=== PATIENT | female | born 2000 ===

== ENCOUNTER 2019-07-01 18:03 | Inpatient (IN) | payer MEDICAID ==
[2019-07-01] MEDS ORDERED: Sodium Chloride 0.9% 10 ML SDV IV PRN (19:09)
[2019-07-01] MEDS ORDERED: Methylergonovine 0.2 MG/1 ML Amp IM PRN ×2 (19:09→23:46)
[2019-07-01] MEDS ORDERED: Water For Irrigation,Sterile 1,000 ML Container IRR PRN (19:09)
[2019-07-01] MEDS ORDERED: Tranexamic Acid 1,000 MG in Sodium Chloride 0.9% 100 ML IV PRN ×2 (19:09→23:46)
[2019-07-01] MEDS ORDERED: Sodium Chloride 0.9% 2.5 ML Syringe FLUSH PRN (19:09)
[2019-07-01] MEDS ORDERED: Nalbuphine 10 MG/1 ML Vial IVPUSH PRN (19:09)
[2019-07-01] MEDS ORDERED: Terbutaline 1 MG/ML SDV SUBCUT PRN (19:09)
[2019-07-01] MEDS ORDERED: Sodium Chloride 0.9% 10 ML Syringe FLUSH PRN (19:09)
[2019-07-01] MEDS ORDERED: Misoprostol 200 MCG Tab PO PRN (19:09)
[2019-07-01] MEDS ORDERED: Butorphanol 1 MG/ML SDV IVPUSH PRN (19:09)
[2019-07-01] MEDS ORDERED: Lidocaine 1% 50 ML MDV INJECT PRN (19:09)
[2019-07-01] MEDS ORDERED: Carboprost Tromethamine 250 MCG/1 ML Amp IM PRN (19:09)
[2019-07-01] MEDS ORDERED: Lactated Ringers 1,000 ML IV SCH (19:15)
[2019-07-01] MEDS ORDERED: Oxytocin/0.9 % Sodium Chloride 30 UNIT/500 ML BAG IV SCH ×2 (19:15)
[2019-07-01] MEDS ORDERED: fentaNYL 100 MCG/2 ML SDV ONE (20:01)
[2019-07-01] MEDS ORDERED: Ropivacaine HCl/PF 100 ML ONE (20:01)
[2019-07-01] MEDS ORDERED: Ropivacaine 0.2% PF 2 MG/ML 20 ML SDV ONE (20:01)
--- NOTE | 2019-07-01 20:58 | HP ---
DATE OF : 2000 PRIMARY CARE PHYSICIAN: Unknown PCP ADMITTING DIAGNOSIS: Labor. HISTORY OF PRESENT ILLNESS: This is a 18-year-old female. She is G2, P1-0-0-1. She presents at 40-5/7 weeks' gestation in active spontaneous labor. She is group B strep negative. She has had good care with Dr. Meghan Sosa in [place] as well as the [facility] in [place]. She is known to be group B strep negative. She has had decreased frequency of OB visits in the last month due to COVID activity. She has had no known exposure. She denies fever, chills, cough, shortness of breath, or other symptoms. She presents with contractions that are becoming more and more painful. She chose to come to [place]. She did receive a referral from [facility] to be delivered in [place] as this is her preference as she feels that it is a lower risk facility for COVID. care is uncomplicated. She denies use of tobacco, alcohol, or street drugs. MEDICAL HISTORY: Negative. SURGICAL HISTORY: Negative. ALLERGIES: None known. MEDICATIONS: None. She states that she has not been taking her vitamins lately because she was hoping that she would get delivered. SOCIAL HISTORY: She is single. Sexually active. She denies use of tobacco, alcohol, or street drugs. Due to no prior visits here in [place], she does agree to a urine drug screen. FAMILY HISTORY: Negative for babies with congenital anomalies. PAST OBSTETRIC HISTORY: She has had 1 prior term spontaneous vaginal delivery. This was 3 years ago and without complications. This was with Dr. Travis in [place]. REVIEW OF SYSTEMS: Negative for headache, visual changes, shortness of breath, chest pain, dyspnea on exertion, palpitations, nausea, vomiting, diarrhea, skin rash, or other concerns. PHYSICAL EXAMINATION: VITAL SIGNS: Her blood pressure is 114/73, temperature 97.2, pulse is 93, respiratory rate of 20. heart tones are 130s, moderate variability, acceleration present, no decelerations. Contractions are every 4 minutes. GENERAL: She is alert and oriented. She is in no acute distress. NECK: Supple without lymphadenopathy or thyromegaly. LUNGS: Clear. CV: Regular without murmur. ABDOMEN: Soft, gravid, nontender. Estimated weight of 3600 g. There is no CVA tenderness. EXTREMITIES: Show trace edema. VAGINAL: 6 cm, 70% effaced, -2 station. ASSESSMENT AND PLAN: 40-5/7 weeks' intrauterine , active spontaneous labor, group B strep negative, category 1 heart tones. We will admit to Labor and Delivery. She may have epidural at request and proceed with labor management. TALIA WHALEN /[id number]
--- NOTE | 2019-07-01 21:03 | PCM.PREANE ---
Preanesthetic Assessment - Procedure Proposed Procedure: JUNIOR - Anesthesia/Transfusion/Family Hx Anesthesia History: Prior Anesthesia Without Reaction Family History of Anesthesia Reaction: No Transfusion History: No Prior Transfusion(s) Intubation History: Unknown - Review of Systems General: No Symptoms Pulmonary: No Symptoms Cardiovascular: No Symptoms Gastrointestinal: No Symptoms Neurological: No Symptoms Other: Reports: Anxiety (Extremely anxious. ) - Physical Assessment NPO Status Date: 07/01/19 NPO Status Time: 19:30 Vital Signs: 140/76 88 20 99% Height: 1.65 m Weight: 102.512 kg ASA Class: 2 Mental Status: Alert & Oriented x3 Airway Class: Mallampati = 2 Dentition: Reports: Normal Dentition Thyro-Mental Finger Breadths: 3 Mouth Opening Finger Breadths: 3 ROM/Head Extension: Full Lungs: Clear to Auscultation Cardiovascular: Regular Rate - Lab Values: Laboratory Last Values WBC 11.62 K/uL (4.0-11.0) H 07/01/19 19:35 RBC 3.70 M/uL (4.30-5.90) L 07/01/19 19:35 Hgb 11.2 g/dL (12.0-16.0) L 07/01/19 19:35 Hct 34.1 % (36.0-46.0) L 07/01/19 19:35 MCV 92.2 fL (80.0-98.0) 07/01/19 19:35 MCH 30.3 pg (27.0-32.0) 07/01/19 19:35 MCHC 32.8 g/dL (31.0-37.0) 07/01/19 19:35 RDW Std Deviation 44.2 fl (28.0-62.0) 07/01/19 19:35 RDW Coeff of Candice 13 % (11.0-15.0) 07/01/19 19:35 Plt Count 238 K/uL (150-400) 07/01/19 19:35 MPV 10.10 fL (7.40-12.00) 07/01/19 19:35 Nucleated RBC % 0.0 /100WBC 07/01/19 19:35 Nucleated RBCs # 0 K/uL 07/01/19 19:35 Urine Opiates Screen NEGATIVE (NEGATIVE) 07/01/19 19:30 Ur Oxycodone Screen NEGATIVE (NEGATIVE) 07/01/19 19:30 Urine Methadone Screen NEGATIVE (NEGATIVE) 07/01/19 19:30 Ur Barbiturates Screen NEGATIVE (NEGATIVE) 07/01/19 19:30 Ur Phencyclidine Scrn NEGATIVE (NEGATIVE) 07/01/19 19:30 Ur Amphetamine Screen NEGATIVE (NEGATIVE) 07/01/19 19:30 U Methamphetamines Scrn NEGATIVE (NEGATIVE) 07/01/19 19:30 U Benzodiazepines Scrn NEGATIVE (NEGATIVE) 07/01/19 19:30 U Cocaine Metab Screen NEGATIVE (NEGATIVE) 07/01/19 19:30 U Marijuana (THC) Screen NEGATIVE (NEGATIVE) 07/01/19 19:30 - Allergies Allergies/Adverse Reactions: Allergies Allergy/AdvReac Type Severity Reaction Status Date / Time No Known Allergies Allergy Verified 07/01/19 19:07 - Blood Blood Available: No Product(s) Available: None - Anesthesia Plan Pre-Op Medication Ordered: None - Acknowledgements Anesthesia Type Planned: Epidural Pt an Appropriate Candidate for the Planned Anesthesia: Yes Alternatives and Risks of Anesthesia Discussed w Pt/Guardian: Yes Pt/Guardian Understands and Agrees with Anesthesia Plan: Yes Additional Comments: Acceptable candidate. Discussed. ? answered. 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 [No Known Home Meds] 07/01/19 [History] - CURRENT (IN HOUSE) MEDS Current Meds: Current Medications Butorphanol Tartrate (Stadol) 1 mg IVPUSH Q1H PRN PRN Reason: Pain Carboprost Tromethamine (Hemabate Ds) 250 mcg IM ASDIRECTED PRN PRN Reason: Post Hemorrhage Lactated Ringer's (Ringers, Lactated) 1,000 mls @ 150 mls/hr IV ASDIRECTED ADENIKE Last Admin: 07/01/19 19:25 Dose: 999 mls/hr Oxytocin/Sodium Chloride (Oxytocin 30 Unit/500 Ml-Ns) 30 unit in 500 mls @ 500 mls/hr IV TITRATE ADENIKE Oxytocin/Sodium Chloride (Oxytocin 30 Unit/500 Ml-Ns) 30 unit in 500 mls @ 2 mls/hr IV TITRATE ADENIKE; Protocol Tranexamic Acid 1,000 mg/ (Sodium Chloride) 110 mls @ 660 mls/hr IV ONETIME PRN PRN Reason: Bleeding Lidocaine HCl (Xylocaine 1%) 50 ml INJECT ONETIME PRN PRN Reason: Laceration repair Methylergonovine Maleate (Methergine) 0.2 mg IM ASDIRECTED PRN PRN Reason: Post Hemorrhage Misoprostol (Cytotec) 200 mcg PO ONETIME PRN PRN Reason: Post Hemorrhage Nalbuphine HCl (Nubain) 10 mg IVPUSH Q1H PRN PRN Reason: Pain (severe 7-10) Sodium Chloride (Saline Flush) 10 ml FLUSH ASDIRECTED PRN PRN Reason: Keep Vein Open Sodium Chloride (Saline Flush) 2.5 ml FLUSH ASDIRECTED PRN PRN Reason: Keep Vein Open Sodium Chloride (Normal Saline) 10 ml IV ASDIRECTED PRN PRN Reason: IV Use Sterile Water (Sterile Water For Irrigation) 1,000 ml IRR ASDIRECTED PRN PRN Reason: delivery Terbutaline Sulfate (Brethine) 0.25 mg SUBCUT ASDIRECTED PRN PRN Reason: Tacysystole Discontinued Medications Fentanyl (Sublimaze) Confirm Administered Dose 100 mcg .ROUTE .STK-MED ONE Stop: 07/01/19 20:02 Ropivacaine (Naropin 0.2%) Confirm Administered Dose 100 mls @ as directed .ROUTE .STK-MED ONE Stop: 07/01/19 20:02 Ropivacaine (Naropin 0.2%) Confirm Administered Dose 20 ml .ROUTE .STK-MED ONE Stop: 07/01/19 20:02
--- NOTE | 2019-07-01 21:26 | PCM.SN ---
- Free Text/Narrative Note: Requested JUNIOR on active labor. 5-6cm dilated. Pain 5/10. VERY anxious. Prep: Choloprep. Skin local @ L3-4 5ml 1% lido. Space via CLARITZA with saline/air mix. Space on first pass. Needle adjusted from L to R initially with slight L sided pain, then back L with R sided ache. Good CLARITZA with air saline and reconfirmed with 3ml saline. Cath to 8cm without issues. TEST NEGATIVE with 3ml 1.5% lido +1:200k Epi added Occlusive drsg with Tegaderm. Bolus 8ml 0.2% Naropin + 100 mcg fentanyl over 7 minutes. Pain lessening. 20: 20-27. 20:35 Residual discomfort. 5ml 0.2% Naropin 20:56 Infusion on 8ml/hr with 4ml/15min bolus. Doing well. VSS
--- NOTE | 2019-07-01 23:45 | PCM.DEL ---
L & D Note - General Info Date of Service: 07/01/19 Mother's Due Date: 06/26/19 - Delivery Note Labor: Spontaneous Delivery Method: Spontaneous Vaginal Delivery-Single Presentation: Left Occiput Anterior (HAY) Nuchal Cord: Reduced Prep: Other Anesthesia Type: Epidural Amniotic Fluid Description: Meconium Stained Episiotomy Type: None Laceration: None Placenta: Intact, Spontaneous Cord: 3 Vessels Estimated Blood Loss: 300 Resuscitation Needed: No : Suctioned Score 1 min: 8 Score 5 min: 9 Delivery Comments (Free Text/Narrative):: Liveborn female weight 4050 grams. - General Info Date of Service: 07/01/19 - Patient Data Weight - Most Recent: 102.512 kg Lab Results Last 24 Hours: Laboratory Results - last 24 hr 07/01/19 07/01/19 07/01/19 Range/Units 19:30 19:35 20:47 WBC 11.62 H (4.0-11.0) K/uL RBC 3.70 L (4.30-5.90) M/uL Hgb 11.2 L (12.0-16.0) g/dL Hct 34.1 L (36.0-46.0) % MCV 92.2 (80.0-98.0) fL MCH 30.3 (27.0-32.0) pg MCHC 32.8 (31.0-37.0) g/dL RDW Std Deviation 44.2 (28.0-62.0) fl RDW Coeff of Candice 13 (11.0-15.0) % Plt Count 238 (150-400) K/uL MPV 10.10 (7.40-12.00) fL Nucleated RBC % 0.0 /100WBC Nucleated RBCs # 0 K/uL Urine Opiates Screen NEGATIVE (NEGATIVE) Ur Oxycodone Screen NEGATIVE (NEGATIVE) Urine Methadone Screen NEGATIVE (NEGATIVE) Ur Barbiturates Screen NEGATIVE (NEGATIVE) Ur Phencyclidine Scrn NEGATIVE (NEGATIVE) Ur Amphetamine Screen NEGATIVE (NEGATIVE) U Methamphetamines Scrn NEGATIVE (NEGATIVE) U Benzodiazepines Scrn NEGATIVE (NEGATIVE) U Cocaine Metab Screen NEGATIVE (NEGATIVE) U Marijuana (THC) Screen NEGATIVE (NEGATIVE) Blood Type A POSITIVE Antibody Screen NEGATIVE Med Orders - Current: Current Medications Butorphanol Tartrate (Stadol) 1 mg IVPUSH Q1H PRN PRN Reason: Pain Carboprost Tromethamine (Hemabate Ds) 250 mcg IM ASDIRECTED PRN PRN Reason: Post Hemorrhage Lactated Ringer's (Ringers, Lactated) 1,000 mls @ 150 mls/hr IV ASDIRECTED ADENIKE Last Admin: 07/01/19 19:25 Dose: 999 mls/hr Oxytocin/Sodium Chloride (Oxytocin 30 Unit/500 Ml-Ns) 30 unit in 500 mls @ 500 mls/hr IV TITRATE ADENIKE Oxytocin/Sodium Chloride (Oxytocin 30 Unit/500 Ml-Ns) 30 unit in 500 mls @ 2 mls/hr IV TITRATE ADENIKE; Protocol Last Admin: 07/01/19 21:24 Dose: 2 munits/min, 2 mls/hr Tranexamic Acid 1,000 mg/ (Sodium Chloride) 110 mls @ 660 mls/hr IV ONETIME PRN PRN Reason: Bleeding Lidocaine HCl (Xylocaine 1%) 50 ml INJECT ONETIME PRN PRN Reason: Laceration repair Methylergonovine Maleate (Methergine) 0.2 mg IM ASDIRECTED PRN PRN Reason: Post Hemorrhage Misoprostol (Cytotec) 200 mcg PO ONETIME PRN PRN Reason: Post Hemorrhage Nalbuphine HCl (Nubain) 10 mg IVPUSH Q1H PRN PRN Reason: Pain (severe 7-10) Sodium Chloride (Saline Flush) 10 ml FLUSH ASDIRECTED PRN PRN Reason: Keep Vein Open Sodium Chloride (Saline Flush) 2.5 ml FLUSH ASDIRECTED PRN PRN Reason: Keep Vein Open Sodium Chloride (Normal Saline) 10 ml IV ASDIRECTED PRN PRN Reason: IV Use Sterile Water (Sterile Water For Irrigation) 1,000 ml IRR ASDIRECTED PRN PRN Reason: delivery Terbutaline Sulfate (Brethine) 0.25 mg SUBCUT ASDIRECTED PRN PRN Reason: Tacysystole Discontinued Medications Fentanyl (Sublimaze) Confirm Administered Dose 100 mcg .ROUTE .STK-MED ONE Stop: 07/01/19 20:02 Ropivacaine (Naropin 0.2%) Confirm Administered Dose 100 mls @ as directed .ROUTE .STK-MED ONE Stop: 07/01/19 20:02 Ropivacaine (Naropin 0.2%) Confirm Administered Dose 20 ml .ROUTE .STK-MED ONE Stop: 07/01/19 20:02 - Problem List & Annotations (1) Vaginal delivery SNOMED Code(s): 810548506 Code(s): O80 - ENCOUNTER FOR FULL-TERM UNCOMPLICATED DELIVERY Status: Acute Current Visit: Yes - Problem List Review Problem List Initiated/Reviewed/Updated: Yes - My Orders Last 24 Hours: My Active Orders 07/01/19 19:09 Patient Status [ADT] Routine Bedrest Bathroom Privileges [RC] ASDIRECTED Communication Order [RC] ASDIRECTED Communication Order [RC] ASDIRECTED May Shower [RC] ASDIRECTED Notify Provider [RC] PRN Notify Provider [RC] PRN Notify Provider [RC] STAT Oxygen Therapy [RC] ASDIRECTED Up ad Julianne [RC] ASDIRECTED Vital Signs [RC] PER UNIT ROUTINE Vital Signs [RC] PER UNIT ROUTINE Butorphanol [Stadol] 1 mg IVPUSH Q1H PRN Carboprost Tromethamine [Hemabate DS] 250 mcg IM ASDIRECTED PRN Lidocaine 1% [Xylocaine 1%] 50 ml INJECT ONETIME PRN Methylergonovine [Methergine] 0.2 mg IM ASDIRECTED PRN Nalbuphine [Nubain] 10 mg IVPUSH Q1H PRN Sodium Chloride 0.9% [Normal Saline] 10 ml IV ASDIRECTED PRN Sodium Chloride 0.9% [Saline Flush] 10 ml FLUSH ASDIRECTED PRN Sodium Chloride 0.9% [Saline Flush] 2.5 ml FLUSH ASDIRECTED PRN Terbutaline [Brethine] 0.25 mg SUBCUT ASDIRECTED PRN Tranexamic Acid [Cyklokapron] 1,000 mg Sodium Chloride 0.9% [Normal Saline] 100 ml IV ONETIME Water For Irrigation,Sterile [Sterile Water for Irrigation] 1,000 ml IRR ASDIRECTED PRN miSOPROStoL [Cytotec] 200 mcg PO ONETIME PRN Scalp Electrode [WOMSER] Per Unit Routine Peripheral IV Insertion Adult [OM.PC] Routine Resuscitation Status Routine 07/01/19 19:15 Lactated Ringers [Ringers, Lactated] 1,000 ml IV ASDIRECTED Oxytocin/0.9 % Sodium Chloride [Oxytocin 30 Unit/500 ML-NS] 30 unit in 500 ml IV TITRATE Oxytocin/0.9 % Sodium Chloride [Oxytocin 30 Unit/500 ML-NS] 30 unit in 500 ml IV TITRATE Medication Administration Instruction [OM.PC] Q3H 07/01/19 19:35 RPR (SYPHILIS SERO) W/ RFLX [REF] Routine 07/01/19 Dinner Clear Liquid Diet [DIET]
[2019-07-01] MEDS ORDERED: Ibuprofen 400 MG Tab PO PRN (23:46)
[2019-07-01] MEDS ORDERED: Witch Hazel Medicated Pads 40/Jar TOP PRN (23:46)
[2019-07-01] MEDS ORDERED: Lanolin 100% Cream 7 GM Tube TOP PRN (23:46)
[2019-07-01] MEDS ORDERED: Acetaminophen 500 MG Tab PO PRN ×2 (23:46)
[2019-07-01] MEDS ORDERED: Bisacodyl 10 MG Supp RECTAL PRN (23:46)
[2019-07-01] MEDS ORDERED: Benzocaine/Menthol 20%-0.5% Spray 78 GM Cannister TOP PRN (23:46)
--- NOTE | 2019-07-02 01:16 | OR ---
SURGEON: Osiris Perez M.D. DATE OF PROCEDURE: 07/01/2019 PREOPERATIVE DIAGNOSES: 40-6/7 week intrauterine , active spontaneous labor. POSTOPERATIVE DIAGNOSES: 40-6/7 week intrauterine , active spontaneous labor. PROCEDURE: Term spontaneous vaginal delivery. PRIMARY SURGEON: Osiris Perez MD. ANESTHESIA: Epidural. ESTIMATED BLOOD LOSS: Less than 300 mL. FINDINGS: Liveborn female. scores 8 and 9. Weight is 4050 g. Placenta spontaneous, Schultze intact with 3 vessels. Perineum intact. COMPLICATIONS: None known. DISPOSITION: Mother and baby are in LDR in good condition. BRIEF HISTORY: This is a 18-year-old female. She is G2, P1-0-0-1. She presents at 40-6/7 weeks' gestation in active spontaneous labor, 5 cm dilated. She has had care with S in [place] as well as Dr. Sosa in [place]. However, she prefers to deliver in [place] primarily due to her concern of exposure to COVID, which she feels is higher risk in [place] than it is here. She has had uncomplicated care. She has skipped her last few visits to prevent exposure to infectious diseases. She is known to be group B strep negative. She presents in active spontaneous labor. She has category 1 heart tones. Artificial rupture of membranes was performed. Clear fluid was noted. However, throughout labor, there was light meconium that developed. She had received an epidural for pain control. Following this, she had slow progress. Therefore, low-dose Pitocin was initiated for augmentation and she progressed to complete. DESCRIPTION OF PROCEDURE: With the patient in dorsal lithotomy position, the patient pushed over a 30- minute time period to a 5+ station at which time the head was delivered spontaneously and atraumatically over the perineum with support with subsequent delivery of the infant's shoulders and body without any difficulty. The was bulb suctioned by nose and mouth, and after the cord had ceased to pulsate, it was doubly clamped and cut. The infant was handed to the mother in the presence of the nurse attending delivery. The infant was a liveborn female, scores 8 and 9, weighing 4050 g. Pitocin was initiated after delivery of the to assist with delivery of the placenta, which was delivered spontaneously. Schultze intact with 3 vessels. Upon inspection of the pelvis and perineum, there were no periurethral, vaginal sidewall, cervical, rectal, or perineal lacerations. EBL was less than 300 mL. There were no known complications. Mother and baby remained in LDR in good condition. TALIA WHALEN /[id number]
[2019-07-02] MEDS: Ibuprofen 800 MG Tab PO PRN ×2 (08:14→15:50)
[2019-07-02] MEDS: Docusate Sodium 100 MG Cap PO PRN (08:16)
--- NOTE | 2019-07-02 09:16 | PCM48HPAN ---
Post Anesthesia Note - EVALUATION WITHIN 48HRS OF ANESTHETIC Vital Signs in Normal Range: Yes Patient Participated in Evaluation: Yes Respiratory Function Stable: Yes Airway Patent: Yes Cardiovascular Function Stable: Yes Hydration Status Stable: Yes Pain Control Satisfactory: Yes Nausea and Vomiting Control Satisfactory: Yes Mental Status Recovered: Yes Vital Signs: Last Vital Signs Temp 36.3 C 07/02/19 08:00 Pulse 84 07/02/19 08:00 Resp 18 07/02/19 08:00 BP 114/70 07/02/19 08:00 Pulse Ox 93 L 07/02/19 08:00 - COMMENTS/OBSERVATIONS Free Text/Narrative:: Doing well.
--- NOTE | 2019-07-02 09:45 | PCM.PNPP ---
- General Info Date of Service: 07/02/19 Functional Status: Reports: Pain Controlled, Tolerating Diet, Ambulating, Urinating - Review of Systems General: Reports: No Symptoms HEENT: Reports: No Symptoms Pulmonary: Reports: No Symptoms Cardiovascular: Reports: No Symptoms Gastrointestinal: Reports: No Symptoms Genitourinary: Reports: No Symptoms Musculoskeletal: Reports: No Symptoms Skin: Reports: No Symptoms Neurological: Reports: No Symptoms Psychiatric: Reports: No Symptoms - Patient Data Vital Signs - Most Recent: Last Vital Signs Temp 36.3 C 07/02/19 08:00 Pulse 84 07/02/19 08:00 Resp 18 07/02/19 08:00 BP 114/70 07/02/19 08:00 Pulse Ox 93 L 07/02/19 08:00 Weight - Most Recent: 102.512 kg Lab Results - Last 24 Hours: Laboratory Results - last 24 hr 07/01/19 07/01/19 07/01/19 Range/Units 19:30 19:35 20:47 WBC 11.62 H (4.0-11.0) K/uL RBC 3.70 L (4.30-5.90) M/uL Hgb 11.2 L (12.0-16.0) g/dL Hct 34.1 L (36.0-46.0) % MCV 92.2 (80.0-98.0) fL MCH 30.3 (27.0-32.0) pg MCHC 32.8 (31.0-37.0) g/dL RDW Std Deviation 44.2 (28.0-62.0) fl RDW Coeff of Candice 13 (11.0-15.0) % Plt Count 238 (150-400) K/uL MPV 10.10 (7.40-12.00) fL Nucleated RBC % 0.0 /100WBC Nucleated RBCs # 0 K/uL Cord ABG pH (7.18-7.38) Cord ABG Base Excess (-10--2) Cord VBG pH (7.25-7.45) Cord VBG Base Excess (-10--2) Urine Opiates Screen NEGATIVE (NEGATIVE) Ur Oxycodone Screen NEGATIVE (NEGATIVE) Urine Methadone Screen NEGATIVE (NEGATIVE) Ur Barbiturates Screen NEGATIVE (NEGATIVE) Ur Phencyclidine Scrn NEGATIVE (NEGATIVE) Ur Amphetamine Screen NEGATIVE (NEGATIVE) U Methamphetamines Scrn NEGATIVE (NEGATIVE) U Benzodiazepines Scrn NEGATIVE (NEGATIVE) U Cocaine Metab Screen NEGATIVE (NEGATIVE) U Marijuana (THC) Screen NEGATIVE (NEGATIVE) Blood Type A POSITIVE Antibody Screen NEGATIVE 07/01/19 07/02/19 Range/Units 23:30 06:11 WBC (4.0-11.0) K/uL RBC (4.30-5.90) M/uL Hgb 9.5 L (12.0-16.0) g/dL Hct 28.8 L (36.0-46.0) % MCV (80.0-98.0) fL MCH (27.0-32.0) pg MCHC (31.0-37.0) g/dL RDW Std Deviation (28.0-62.0) fl RDW Coeff of Candice (11.0-15.0) % Plt Count (150-400) K/uL MPV (7.40-12.00) fL Nucleated RBC % /100WBC Nucleated RBCs # K/uL Cord ABG pH 7.173 L (7.18-7.38) Cord ABG Base Excess -8 (-10--2) Cord VBG pH 7.374 (7.25-7.45) Cord VBG Base Excess -6 (-10--2) Urine Opiates Screen (NEGATIVE) Ur Oxycodone Screen (NEGATIVE) Urine Methadone Screen (NEGATIVE) Ur Barbiturates Screen (NEGATIVE) Ur Phencyclidine Scrn (NEGATIVE) Ur Amphetamine Screen (NEGATIVE) U Methamphetamines Scrn (NEGATIVE) U Benzodiazepines Scrn (NEGATIVE) U Cocaine Metab Screen (NEGATIVE) U Marijuana (THC) Screen (NEGATIVE) Blood Type Antibody Screen Med Orders - Current: Current Medications Acetaminophen (Tylenol Extra Strength) 500 mg PO Q4H PRN PRN Reason: Pain Acetaminophen (Tylenol Extra Strength) 1,000 mg PO Q4H PRN PRN Reason: Pain Benzocaine/Menthol (Dermoplast Pain Relief 20%-0.5% [place]) 78 gm TOP ASDIRECTED PRN PRN Reason: Perineal Comfort Measure Last Admin: 07/02/19 08:16 Dose: 1 canister Bisacodyl (Dulcolax) 10 mg RECTAL ONETIME PRN PRN Reason: Constipation Docusate Sodium (Colace) 100 mg PO BID PRN PRN Reason: Constipation Last Admin: 07/02/19 08:16 Dose: 100 mg Emollient Ointment (Lansinoh Hpa) 0 gm TOP ASDIRECTED PRN PRN Reason: Sore Nipples Tranexamic Acid 1,000 mg/ (Sodium Chloride) 110 mls @ 660 mls/hr IV ONETIME PRN PRN Reason: Bleeding Ibuprofen (Motrin) 400 mg PO Q4H PRN PRN Reason: Pain Ibuprofen (Motrin) 800 mg PO Q6H PRN PRN Reason: Pain Last Admin: 07/02/19 08:14 Dose: 800 mg Methylergonovine Maleate (Methergine) 0.2 mg IM ONETIME PRN PRN Reason: Excessive Vaginal Bleeding Witch Claire (Tucks) 1 pad TOP ASDIRECTED PRN PRN Reason: comfort care Last Admin: 07/02/19 08:16 Dose: 1 tub Discontinued Medications Butorphanol Tartrate (Stadol) 1 mg IVPUSH Q1H PRN PRN Reason: Pain Carboprost Tromethamine (Hemabate Ds) 250 mcg IM ASDIRECTED PRN PRN Reason: Post Hemorrhage Fentanyl (Sublimaze) Confirm Administered Dose 100 mcg .ROUTE .[employer]-MED ONE Stop: 07/01/19 20:02 Lactated Ringer's (Ringers, Lactated) 1,000 mls @ 150 mls/hr IV ASDIRECTED ADENIKE Last Admin: 07/01/19 19:25 Dose: 999 mls/hr Oxytocin/Sodium Chloride (Oxytocin 30 Unit/500 Ml-Ns) 30 unit in 500 mls @ 500 mls/hr IV TITRATE ADENIKE Oxytocin/Sodium Chloride (Oxytocin 30 Unit/500 Ml-Ns) 30 unit in 500 mls @ 2 mls/hr IV TITRATE ADENIKE; Protocol Last Titration: 07/02/19 00:00 Dose: Infused Tranexamic Acid 1,000 mg/ (Sodium Chloride) 110 mls @ 660 mls/hr IV ONETIME PRN PRN Reason: Bleeding Ropivacaine (Naropin 0.2%) Confirm Administered Dose 100 mls @ as directed .ROUTE .[employer]-MED ONE Stop: 07/01/19 20:02 Lidocaine HCl (Xylocaine 1%) 50 ml INJECT ONETIME PRN PRN Reason: Laceration repair Methylergonovine Maleate (Methergine) 0.2 mg IM ASDIRECTED PRN PRN Reason: Post Hemorrhage Misoprostol (Cytotec) 200 mcg PO ONETIME PRN PRN Reason: Post Hemorrhage Nalbuphine HCl (Nubain) 10 mg IVPUSH Q1H PRN PRN Reason: Pain (severe 7-10) Ropivacaine (Naropin 0.2%) Confirm Administered Dose 20 ml .ROUTE .[facility]-MED ONE Stop: 07/01/19 20:02 Sodium Chloride (Saline Flush) 10 ml FLUSH ASDIRECTED PRN PRN Reason: Keep Vein Open Sodium Chloride (Saline Flush) 2.5 ml FLUSH ASDIRECTED PRN PRN Reason: Keep Vein Open Sodium Chloride (Normal Saline) 10 ml IV ASDIRECTED PRN PRN Reason: IV Use Sterile Water (Sterile Water For Irrigation) 1,000 ml IRR ASDIRECTED PRN PRN Reason: delivery Last Admin: 07/01/19 23:47 Dose: 1,000 ml Terbutaline Sulfate (Brethine) 0.25 mg SUBCUT ASDIRECTED PRN PRN Reason: Tacysystole - Infant Interaction Infant Disposition, : in Room with Family Infant Interaction: Holding Infant Feeding: Bottle Fed Infant Support Person: Other (see below) (no one visiting at patient request due to COVID concerns.) - Recovery Exam Fundal Tone: Firm Fundal Level: At Umbilicus Fundal Placement: Midline Lochia Amount: Scant Lochia Color: Rubra/Red Perineum Description: Intact, Minimal Bruising/Swelling Episiotomy/Laceration: None Bladder Status: Voiding - Exam General: Alert, Oriented HEENT: Pupils Equal Neck: Supple Lungs: Normal Respiratory Effort GI/Abdominal Exam: Soft, Non-Tender, No Distention Extremities: Normal Inspection, Normal Range of Motion, Normal Capillary Refill Skin: Warm, Dry, Intact Neurological: No New Focal Deficit Psy/Mental Status: Alert, Normal Affect, Normal Mood - Problem List & Annotations (1) Vaginal delivery SNOMED Code(s): 864018341 Code(s): O80 - ENCOUNTER FOR FULL-TERM UNCOMPLICATED DELIVERY Status: Acute Current Visit: Yes - Problem List Review Problem List Initiated/Reviewed/Updated: Yes - My Orders Last 24 Hours: My Active Orders 07/01/19 19:09 Oxygen Therapy [RC] ASDIRECTED Vital Signs [RC] PER UNIT ROUTINE Vital Signs [RC] PER UNIT ROUTINE 07/01/19 19:35 RPR (SYPHILIS SERO) W/ RFLX [REF] Routine 07/01/19 23:46 Patient Status [ADT] Routine May Shower [RC] ASDIRECTED Up ad Julianne [RC] ASDIRECTED Vital Signs [RC] PER UNIT ROUTINE Acetaminophen [Tylenol Extra Strength] 1,000 mg PO Q4H PRN Acetaminophen [Tylenol Extra Strength] 500 mg PO Q4H PRN Benzocaine/Menthol [Dermoplast Pain Relief 20%-0.5% [place]] 78 gm TOP ASDIRECTED PRN Docusate Sodium [Colace] 100 mg PO BID PRN Ibuprofen [Motrin] 400 mg PO Q4H PRN Ibuprofen [Motrin] 800 mg PO Q6H PRN Lanolin [Lansinoh HPA] See Dose Instructions TOP ASDIRECTED PRN Methylergonovine [Methergine] 0.2 mg IM ONETIME PRN Tranexamic Acid [Cyklokapron] 1,000 mg Sodium Chloride 0.9% [Normal Saline] 100 ml IV ONETIME bisacodyL [Dulcolax] 10 mg RECTAL ONETIME PRN witch Claire [Tucks] 1 pad TOP ASDIRECTED PRN Assess Lochia [WOMSER] Per Unit Routine Assess Uterine Involution [WOMSER] Per Unit Routine Perineal Care [OM.PC] Per Unit Routine Peripheral IV Discontinue [OM.PC] Routine Resuscitation Status Routine 07/02/19 Breakfast Regular Diet [DIET] - Assessment Assessment:: PPD#1 after , stable, minimal lochia, bonding well, bottle feeding. Would like to go home at 24 hours to limit COVID exposure. - Plan Plan:: Discharge instructions reviewed, she is planning to follow up with Dr. Reyez in [place].
[2019-07-02] MEDS ORDERED: Cocoa Butter/Phenylephrine Rectal Supp RECTAL PRN (14:39)
[2019-07-03] MEDS: Docusate Sodium 100 MG Cap PO PRN (04:25)
[2019-07-03] MEDS: Ibuprofen 800 MG Tab PO PRN (04:49)
== END 2019-07-03 11:45 | disposition home or self-care (01) | DRG 807 ==
LOC: MW.OBCHECK 18:03 → MW.OB 18:03 → MW.OBCHECK 19:09 → OBSVTOIN 07-02 01:04 → MW.OB 07-02 03:00
PROVIDERS: ADMIT Obstetrics & Gynecology; ATTEND Obstetrics & Gynecology
PROC: 10E0XZZ Delivery of Products of Conception, External Approach (ICD-10-PCS; principal; 2019-07-02)
PROC: 10907ZC Drainage of Amniotic Fluid, Therapeutic from Products of Conception, Via Natural or Artificial Opening (ICD-10-PCS; 2019-07-02)
PROC: 3E0R3BZ Introduction of Anesthetic Agent into Spinal Canal, Percutaneous Approach (ICD-10-PCS; 2019-07-02)
PROC: 00HU33Z Insertion of Infusion Device into Spinal Canal, Percutaneous Approach (ICD-10-PCS; 2019-07-02)
DX: O48.0 Post-term pregnancy (principal); Z37.0 Single live birth; O77.0 Labor and delivery complicated by meconium in amniotic fluid; Z3A.40 40 weeks gestation of pregnancy
CPT/HCPCS: 01967; 36415; 51702; 59025; 59409; 80305-QW; 82803; 85014; 85018; 85027; 86592; 86593; 86850; 86900; 86901; A9270-GY; J2590; J7120